=== PATIENT | male | born 1955 | race Caucasian/White ===

== ENCOUNTER 2017-09-28 16:54 | Emergency (ER) | payer OTHER ==
[~2017-09-28] VITALS: Ht 185.4 cm; Wt 90.7 kg
--- NOTE | 2017-09-28 18:19 | ED PSYCHIATRIC COMPLAINT ---
History of Present Illness General Chief Complaint: Psychiatric Related Complaint Stated Complaint: BIBA +SI, +ETOH, PT PAPERED. Source: patient, police Exam Limitations: no limitations Vital Signs & Intake/Output Vital Signs & Intake/Output Vital Signs Date Time Temp Pulse Resp B/P B/P Pulse O2 O2 Flow FiO2 Mean Ox Delivery Rate 09/29 1024 97.8 74 20 140/82 96 Room Air 09/29 0859 98.1 88 18 152/84 09/29 0859 98.1 88 18 152/84 09/29 0814 98.1 88 18 152/84 94 Room Air 09/29 0623 96.6 85 18 161/86 97 Room Air 09/28 2153 97.0 74 20 137/90 93 Room Air 09/28 1935 96.5 76 20 117/76 94 Room Air 09/28 1745 Room Air 09/28 1745 97.1 89 18 122/72 94 Room Air 09/28 1710 96.7 94 18 121/78 98 Room Air ED Intake and Output 09/29 0000 09/28 1200 Intake Total Output Total Balance Patient 200 lb Weight Weight Estimated Measurement Method Allergies Coded Allergies: NO KNOWN ALLERGIES (10/08/12) Reconcile Medications Lisinopril 10 MG TABLET 1 TAB PO DAILY BP (Reported) Metoprolol Succinate 50 MG TAB.ER.24H 1 TAB PO DAILY HEART/BP (Reported) Rivaroxaban (Xarelto) 20 MG TABLET 1 TAB PO DAILY BLOOD THINNER (Reported) with food Rosuvastatin Calcium (Crestor) 5 MG TABLET 1 TAB PO DAILY CHOLESTEROL ( Reported) Triage Note: PT BIBA ON A PEER AFTER CALLED PD. PT TOLD HE WANTED TO HANG HIMSELF. PT STATES HE DOESN'T MEAN IT "I HAVE BEEN SAYING IT FOR YEARS." ALSO HX ETOH Triage Nurses Notes Reviewed? yes Onset: Abrupt Duration: day(s): (1), changing over time, continues in ED Timing: single episode today Severity: mild, moderate Associated Symptoms: anxiety, suicidal ideation HPI: 62-year-old male past medical history of hypertension and alcohol abuse presents for evaluation on a police paper for suicidal statements. According to the police paper patient had made statements that he is going to hang himself to his . Patient denies this. He states that he says this "all the time". He states he is not serious. He does not want to hang himself. He denies any thoughts of hurting himself or someone else. No hallucinations. He does admit to drinking 5 or 6 beers today. He states he usually drinks that much every day. Denies any history of alcohol withdrawal withdrawal seizures. No drug use no hallucinations. No chest pain shortness of breath nausea vomiting diarrhea and no other associated symptoms. (Nicholas Askew) Past History Travel History Traveled to [place] past 21 day No Medical History Any Pertinent Medical History? see below for history Cardiovascular: hypertension Isolation History: Standard Tetanus Vaccine: 10/08/12 Surgical History Surgical History: non-contributory Psychosocial History What is your primary language Chadian Tobacco Use: Current Daily Use Daily Tobacco Use Amount/Type: => 5 Cigarettes daily ETOH Use: alcoholic Family History Hx Contributory? No (Nicholas Askew) Review of Systems Review of Systems Constitutional: Reports: no symptoms. EENTM: Reports: no symptoms. Respiratory: Reports: no symptoms. Cardiovascular: Reports: no symptoms. GI: Reports: no symptoms. Genitourinary: Reports: no symptoms. Musculoskeletal: Reports: no symptoms. Skin: Reports: no symptoms. Neurological/Psychological: Reports: no symptoms. Hematologic/Endocrine: Reports: no symptoms. Immunologic/Allergic: Reports: no symptoms. All Other Systems: Reviewed and Negative (Nicholas Askew) Physical Exam Physical Exam General Appearance: well developed/nourished, no apparent distress, alert, awake Head: atraumatic, normal appearance Eyes: Bilateral: normal appearance, PERRL, EOMI. Ears, Nose, Throat: normal pharynx, normal ENT inspection, hearing grossly normal Neck: normal inspection, supple, full range of motion Respiratory: normal breath sounds, chest non-tender, no respiratory distress, lungs clear Cardiovascular: regular rate/rhythm, normal peripheral pulses Gastrointestinal: normal bowel sounds, soft, non-tender, no organomegaly Extremities: normal range of motion Neurological/Psychiatric: no motor/sensory deficits, awake, agitated Appearance/Memory/Insight: appropriate appearance, impaired insight Behavoir/Eye Contact/Speech: cooperative, increased rate of speech Thoughts/Hallucinations: normal thought pattern, no apparent hallucination Skin: intact, normal color, warm/dry SAD PERSONS Done? patient not suicidal (Nicholas Askew) Progress Differential Diagnosis: drug intoxication, drug overdose, drug withdrawal, electrolyte abnormality Plan of Care: Orders Procedure Date/time Status Regular Diet 09/29 B Active Add-on Test (ER Only) 09/28 1809 Active Continuous Observation Monitor 09/28 1713 Active URINE DRUG SCREEN FOR ER ONLY 09/28 1713 Complete URINALYSIS 09/28 1713 Complete ETHANOL 09/28 1713 Complete COMPREHENSIVE METABOLIC PANEL 09/28 1713 Complete CBC WITHOUT DIFFERENTIAL 09/28 1713 Complete ED CRISIS PSYCH CONSULT 09/28 1713 Active Current Medications Sig/Mayda Start time Last Medication Dose Stop Time Status Admin Atorvastatin Calcium 20 MG DAILY 09/29 09 UNVr 09/29 (Lipitor) 0859 Lisinopril 10 MG DAILY 09/29 09 UNVr 09/29 (Prinivil) 0859 Metoprolol Succinate 50 MG DAILY 09/29 09 UNVr 09/29 (Toprol Xl) 0859 Rivaroxaban 20 MG DAILY 09/29 09 UNVr 09/29 (Xarelto) 0859 Laboratory Tests 09/28/17 1834: Anion Gap 15, Estimated GFR > 60, BUN/Creatinine Ratio 16.0, Glucose 101 H, Calcium 8.8, Total Bilirubin 0.6, AST 24, ALT 32, Alkaline Phosphatase 63, Total Protein 7.3, Albumin 4.1, Globulin 3.2, Albumin/Globulin Ratio 1.3, CBC w Diff NO MAN DIFF REQ, RBC 4.98, MCV 89.4, MCH 29.7, MCHC 33.3, RDW 14.3, MPV 8.2, Gran % 48.8, Lymphocytes % 34.7, Monocytes % 10.8 H, Eosinophils % 5.2 H, Basophils % 0.5, Absolute Granulocytes 3.5, Absolute Lymphocytes 2.5, Absolute Monocytes 0.8 H, Absolute Eosinophils 0.4, Absolute Basophils 0, Serum Alcohol 173.0 09/28/174: Urine Opiates Screen < 100, Methadone Screen > 735 H, Barbiturate Screen < 60, Ur Phencyclidine Scrn < 6.00, Amphetamines Screen < 100, U Benzodiazepines Scrn < 85, Urine Cocaine Screen < 50, Urine Cannabis Screen < 5.00, Urine Color YEL, Urine Clarity CLEAR, Urine pH 6.0, Ur Specific [place] <= 1.005, Urine Protein TRACE H, Urine Ketones NEG, Urine Nitrite NEG, Urine Bilirubin NEG, Urine Urobilinogen 0.2, Ur Leukocyte Esterase NEG, Ur Microscopic SEDIMENT EXAMINED, Micro UA Comment NEGATIVE MICROSCOPIC, Urine Hemoglobin NEG, Urine Glucose NEG Patient seen and evaluated. He is here to please paper for making suicidal statements. He currently denies this. He also endorses drinking about 5 beers today. Patient will have basic blood work and then be seen by crisis. Patient denies any history of alcohol withdrawal or withdrawal seizures. Alcohol level is greater than 150. Remaining blood work is within normal limits. Patient signout to Dr. Dominguez pending crisis evaluation Hand-Off Endorsed To: Conrado Dominguez MD Endorsed Time: 0118 Pending: consult (CRISIS) (Nicholas Askew) Hand-Off Endorsed To: Martell Bustillos MD Endorsed Time: 0700 Pending: consult (Conrado Dominguez MD) Comments: cleared by psychiatry for discharge. (Martell Bustillos MD) Departure Departure Disposition: STILL A PATIENT Condition: Stable Referrals: Marco Juarez DO (PCP/Family) Departure Forms: Customer Survey General Discharge Information (Nicholas Askew) PA/C2 TACTICAL ANALYSIS TECHNICIAN Co-Sign Statement Statement: ED Attending supervision documentation- [] I saw and evaluated the patient. I have also reviewed all the pertinent lab results and diagnostic results. I agree with the findings and the plan of care as documented in the PA's/C2 TACTICAL ANALYSIS TECHNICIAN's documentation. [x] I have reviewed the ED Record and agree with the PA's/C2 TACTICAL ANALYSIS TECHNICIAN's documentation. [] Additions or exceptions (if any) to the PAs/C2 TACTICAL ANALYSIS TECHNICIAN's note and plan are summarized below: [] (Conrado Dominguez MD) Departure Time of Disposition: 1202 Clinical Impression Primary Impression: Alcohol dependence Secondary Impressions: Suicidal ideation Additional Instructions: Follow up with the recommendations of the drop worker. PA/C2 TACTICAL ANALYSIS TECHNICIAN Co-Sign Statement Statement: ED Attending supervision documentation- x I saw and evaluated the patient. I have also reviewed all the pertinent lab results and diagnostic results. I agree with the findings and the plan of care as documented in the PA's/C2 TACTICAL ANALYSIS TECHNICIAN's documentation. [] I have reviewed the ED Record and agree with the PA's/C2 TACTICAL ANALYSIS TECHNICIAN's documentation. [] Additions or exceptions (if any) to the PAs/C2 TACTICAL ANALYSIS TECHNICIAN's note and plan are summarized below: [] (Martell Bustillos MD)
[2017-09-28 18:44] LABS: ABSOLUTE BASOPHIL COUNT 0 /CUMM (0.0-0.2); ABSOLUTE EOSINOPHIL COUNT 0.4 /CUMM (0.0-0.7); ABSOLUTE GRANULOCYTE CT 3.5 /CUMM (1.4-6.5); ABSOLUTE LYMPH COUNT 2.5 /CUMM (1.2-3.4); ABSOLUTE MONOCYTE COUNT 0.8 /CUMM (0.10-0.60); BASOPHIL % 0.5 % (0.0-2.0); EOSINOPHIL % 5.2 % (0-5); GRANULOCYTE % 48.8 % (42.2-75.2); HEMATOCRIT 44.5 % (42-52); MEAN CORPUSCULAR HGB 29.7 PG (27.0-31.0); MEAN CORPUSCULAR HGB CONC 33.3 G/DL (33.0-37.0); MEAN CORPUSCULAR VOLUME 89.4 FL (80.0-94.0); MEAN PLATELET VOLUME 8.2 FL (7.4-10.4); PLATELET COUNT 173 /CUMM (130-400); RBC DISTRIBUTION WIDTH 14.3 % (11.5-14.5); RED BLOOD CELL CT 4.98 /CUMM (4.70-6.10); WHITE BLOOD CELL COUNT 7.1 /CUMM (4.8-10.8)
[2017-09-28] MEDS ORDERED: LISINOPRIL10 M1 PO (20:47)
[2017-09-28] MEDS ORDERED: CRESTOR5 M1 PO (20:48)
[2017-09-28] MEDS ORDERED: XARELTO20 M2 PO (20:48)
[2017-09-28] MEDS ORDERED: METOPROLOL SUCC50 M2 PO (20:48)
--- NOTE | 2017-09-29 11:24 | ED PSYCH CRISIS CONSULTATION ---
Crisis Consult Basic Assessment Date of Consult: 09/29/17 Responsible Person/Accompanied By: came in on a PEER Insurance Authorization: Insurance #1: Insurance name: YONATHAN PETER Phone number: Policy number: [id number] Group number: [id number] Authorization number: ED Provider: Patient's ED Provider: Nicholas Askew Primary Care Physician: Patient's PCP: Marco Juarez DO PCP's Current Psychiatrist: None Chief Complaint: Psychiatric Related Complaint Patient's Quote: "I was drunk and said some stupid things" Present Illness: Pt is a 62 year old male he arrived to the ER after his called the police because "I was drunk,I was saying stupid things". Pt offers he worked a double because he is pitching in at work he works for [employer] in the [employer] department. He states he drinks a couple of beers daily, he is upset that his hadn't made dinner, she is home most of the day and suffers from COPD. "I know I took it too far, I need to work on that". We explored how he can learn to manage work related stress and family life, he does not have any treaters, has never been hospitialized, and has never been to drug related treatment. His tox screen is positive for Methadone, apparently he takes this for pain but is not at a clinic/ nor is it prescribed. Pt denies si/hi/ah/vh. Pt mentions he has a "leadman at work that is in recovery, I need to talk to him, he did it, I got to slow down". Pt was calm cooperative and insightful. Shared resources with pt in regards to detox, pt offers "I don't know how I would take the time off of work, I would be labeled I'm worred about that, although I know my insurance would pay for it". I encourage pt to continue this conversation with his family. I speak with Caty/and his son she is comfortable with him returning home and has no saftey concerns. The son offers "i know you can't force him to get help, but I'm happy we have the information and know what he could do when he wants to ". C-SSRS rating scale si without plan/not in treatment/substance abuse and many protective factors including family and work engagement. Patient's Address: [address] [place] [address],[place] [id number] Other Who Do You Live With? Family Family/Informants Interviewed: Spoke with and his son, provided resources for [facility]/ [facility] Allergies - Coded Allergies: NO KNOWN ALLERGIES (10/08/12) Current Medications - Scheduled Medications Lisinopril 10 MG TABLET 1 TAB PO DAILY BP #30 (Reported) Entered as Reported by Ella Vidales on 09/28/172046 Metoprolol Succinate 50 MG TAB.ER.24H 1 TAB PO DAILY HEART/BP #30 (Reported) Entered as Reported by Ella Vidales on 09/28/172047 Rivaroxaban (Xarelto) 20 MG TABLET 1 TAB PO DAILY BLOOD THINNER #30 (Reported ) Entered as Reported by Ella Vidales on 09/28/172047 Rosuvastatin Calcium (Crestor) 5 MG TABLET 1 TAB PO DAILY CHOLESTEROL #30 ( Reported) Entered as Reported by Ella Vidales on 09/28/172047 Laboratory Results: Laboratory Tests 09/28/174: Anion Gap 15, Estimated GFR > 60, BUN/Creatinine Ratio 16.0, Glucose 101 H, Calcium 8.8, Total Bilirubin 0.6, AST 24, ALT 32, Alkaline Phosphatase 63, Total Protein 7.3, Albumin 4.1, Globulin 3.2, Albumin/Globulin Ratio 1.3, CBC w Diff NO MAN DIFF REQ, RBC 4.98, MCV 89.4, MCH 29.7, MCHC 33.3, RDW 14.3, MPV 8.2, Gran % 48.8, Lymphocytes % 34.7, Monocytes % 10.8 H, Eosinophils % 5.2 H, Basophils % 0.5, Absolute Granulocytes 3.5, Absolute Lymphocytes 2.5, Absolute Monocytes 0.8 H, Absolute Eosinophils 0.4, Absolute Basophils 0, Serum Alcohol 173.0 09/28/17 1724: Urine Opiates Screen < 100, Methadone Screen > 735 H, Barbiturate Screen < 60, Ur Phencyclidine Scrn < 6.00, Amphetamines Screen < 100, U Benzodiazepines Scrn < 85, Urine Cocaine Screen < 50, Urine Cannabis Screen < 5.00, Urine Color YEL, Urine Clarity CLEAR, Urine pH 6.0, Ur Specific [place] <= 1.005, Urine Protein TRACE H, Urine Ketones NEG, Urine Nitrite NEG, Urine Bilirubin NEG, Urine Urobilinogen 0.2, Ur Leukocyte Esterase NEG, Ur Microscopic SEDIMENT EXAMINED, Micro UA Comment NEGATIVE MICROSCOPIC, Urine Hemoglobin NEG, Urine Glucose NEG Past History Past Medical History Cardiovascular: hypertension Past Surgical History Surgical History: non-contributory Psychosocial History Strengths/Capabilities: family, employed Psychiatric Treatment History Psych Treatment Psychiatric Treatment No Diagnosis by History: n/a Substance Use/Abuse History Drug Use/Abuse Substances Used/Abused Yes Substance Used/Abused Alcohol First Use early adulthood Last Used yesterday How much used/taken a few beers How often daily For how long years Route of use oral Substance Abuse Treatment Substance Abuse Treatment Past Substance Abuse [place] No Current Mental Status Mental Status Orientation: Person, Place, Situation Affect: WNL Speech: WNL Neuro-vegetative: Loss of Interest Appearance Appearance- Dress/Hygiene: Appropriate Behaviors Thought Process: WNL Thought Content: WNL Memory: WNL Insight: Fair SI/HI Risk Assessment Past Suicidal Ideation/Attempts Yes (under the influence) Current Suicidal Ideation/Att No Past Homicidal Ideation/Att: No Current Homicidal Ideation/Attempts No Degree of Intent: None Risk Factors: substance abuse, male Lethality Ratin (mild) PTSD Checklist PTSD Done? patient declined ED Management Sitter: Yes Restraints: No DSM5/PS Stressors/Medical Prob Diagnosis' (DSM 5, Stressors, Medical): Etoh use d/o moderate F10.20 Unspecified depression F32.9 family conflict, work related stress Current GAF: 37 Departure Disposition Psych Medical Clearance Date: 09/29/17 Medically Cleared at: 1030 Time Started: 1030 Time Ended: 1130 Psychiatrist Consulted: Conrado Bermudez MD Date Disposition Established: 09/29/17 Time Disposition Established: 113 Plan for Disposition - Modality: Resources for [facility] given/ and [facility] Facility: Patient to Arrange Follow-up Appt Date: 09/29/17 Follow-Up Appt Time: 1221 Rationale for Disposition: Reviewed with Dr. Bermudez, pt wants to think about detox options and was given resources for [facility] and [facility]. Informed family of this disposition and they are agree and aware. Pt denies si, and says its safe for him to return. Referrals Marco Juarez DO (PCP/Family)
[2017-09-29 12:29] VITALS: BP 154/86
== END 2017-09-29 12:30 | disposition still patient (30) ==
LOC: ERH 16:54
PROVIDERS: Physician Assistant
DX: F10.20 Alcohol dependence, uncomplicated (principal); R45.851 Suicidal ideations
CPT/HCPCS: 80307; 81001; 81003; G0463; G0480